=== PATIENT | male | born 1945 | race Caucasian/White ===

== ENCOUNTER 2017-09-23 09:25 | Day surgery (SDC) | payer OTHER | END 2017-09-23 13:45 | disposition home or self-care (01) | LOC: AMB-ENDOS 09:25 | DX: C20 Malignant neoplasm of rectum (principal); K57.30 Diverticulosis of large intestine without perforation or abscess without bleeding ==

== ENCOUNTER 2017-10-30 09:00 | Inpatient (IN) | payer OTHER ==
[~2017-10-30] VITALS: Ht 165.1 cm; Wt 72.6 kg
[2017-10-30] MEDS ORDERED: LOSARTAN-HCTZ1 EAC1 PO (10:58)
[2017-10-30] MEDS ORDERED: LEVO-T112 MCG PO (10:58)
[2017-10-30] MEDS ORDERED: AMLODIPINE BESY10 MG PO (10:59)
[2017-11-07] MEDS ORDERED: ULTRACET PO (14:54)
[2017-11-07] MEDS ORDERED: CIPRO500 MG PO (14:54)
[2017-11-07] MEDS ORDERED: FLAGYL500MG PO (14:54)
[2017-11-07] MEDS ORDERED: INTESTINEX680 M1 PO (14:54)
== END 2017-11-07 15:51 | disposition home or self-care (01) | DRG 334 ==
LOC: SURH 11-05 05:34 → O/R 11-05 05:34 → SURH 11-05 09:00
PROVIDERS: Surgery
PROC: 0DTP0ZZ Resection of Rectum, Open Approach (ICD-10-PCS; principal; 2017-11-05 10:30)
PROC: 0DJD8ZZ Inspection of Lower Intestinal Tract, Via Natural or Artificial Opening Endoscopic (ICD-10-PCS; 2017-11-05 10:30)
DX: C20 Malignant neoplasm of rectum (principal)

== ENCOUNTER 2018-09-08 09:12 | Day surgery (SDC) | payer OTHER ==
[~2018-09-08 09:12] MED LIST: AMLODIPINE BESY10 MG PO; CIPRO500 MG PO; FLAGYL500MG PO; INTESTINEX680 M1 PO; LEVO-T112 MCG PO; LOSARTAN-HCTZ1 EAC1 PO; ULTRACET PO
== END 2018-09-08 13:55 | disposition home or self-care (01) ==
LOC: AMB-ENDOS 09:12
DX: C20 Malignant neoplasm of rectum (principal)

== ENCOUNTER 2019-09-28 06:55 | Day surgery (SDC) | payer OTHER | END 2019-09-28 12:00 | disposition home or self-care (01) | LOC: AMB-ENDOS 06:55 → ADM 14:45 | DX: K62.89 Other specified diseases of anus and rectum (principal) ==

== ENCOUNTER 2020-11-07 07:00 | Day surgery (SDC) | payer OTHER | END 2020-11-07 10:55 | disposition home or self-care (01) | LOC: AMB-ENDOS 07:00 | PROVIDERS: ATTEND Surgery | DX: K62.89 Other specified diseases of anus and rectum (principal); Z20.822 Contact with and (suspected) exposure to COVID-19 ==